=== PATIENT | female | born 1960 | race Caucasian/White ===

== ENCOUNTER 2020-08-26 12:01 | Outpatient (CLI) | payer OTHER, SELFPAY ==
--- NOTE | 2020-08-26 19:44 | ONC CON_ITS ---
Dr. Morin New Patient Note Patient: Usha Jcainto Unit #: [id number]: [id number] Dicatated By: Ayan Morin M.D.Date of Visit: August 26, 2020 Onc MED New Patient/Consult Referring Physician: Seth Aguirre Chief Complaint: Breast cancer. 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 Her left breast cancer, diagnosed in 2004, was an invasive ductal carcinoma measuring 2.2 cm. The available records did not include the grade, but the Ki-67 was high at 90%. It was ER positive at 97% and VT positive at 98%. HER-2/karissa was 2+ by IHC but negative by FISH. By current TNM classification, it would be at most stage IB, assuming a grade 3 tumor. Her treatment included mastectomy and axillary lymph node dissection which showed no involvement in 23 lymph nodes. She was given adjuvant chemotherapy with Adriamycin/cyclophosphamide followed by Taxotere and she also completed 5 years of endocrine therapy with tamoxifen, completed in 2010. She had negative genetic screening by a [facility] panel in 2014. She then presented in August 2017 with abnormal breast imaging, ultrasound demonstrating a 10 mm lesion at the 12 o'clock position of the right breast. She was confirmed by ultrasound-guided biopsy to have metaplastic carcinoma. The breast prognostic profile showed ER negative at 0%, VT negative at 0%, and HER-2/karissa negative, 0 by IHC. The Ki-67 was 7%. A subsequent MRI of the right breast showed an additional area of suspicion at the 10 o'clock position. On 11/08/2017 she underwent right mastectomy with axillary sentinel lymph node biopsy and with immediate reconstruction utilizing a tissue lab head. Pathology showed multicentric grade 3 invasive ductal carcinoma with cartilaginous differentiation (metaplastic carcinoma) including a 10 mm lesion in the upper outer quadrant and a 2 mm lesion in the lower outer quadrant. There was no involvement in 2 right axillary sentinel lymph nodes. Pathologic staging was IB (T1b, N0, M0). She was given adjuvant chemotherapy with 4 cycles of cyclophosphamide/Taxotere, completed in March 2018. Her clinical course was complicated by failed reconstruction, requiring removal of her tissue lab head in October 2017. She then underwent reconstruction utilizing a latissimus dorsi myocutaneous flap in January 2018. During follow-up there has been no evidence of recurrence of the breast cancer. She had moved to this area in April and she is seen here for continued follow-up of her breast cancer. She has been feeling pretty good generally. She has good energy/activity tolerance. Her ECOG score is 0. Her appetite is too good . She has gained weight. She does not have fever, night sweats, or hot flashes. She does have some sinus drainage. She does not complain of shortness of breath, cough, or chest pain. She says she had acid reflux in the past. She currently has no GI complaints. She has urinary frequency and nocturia. She reports having some joint pain, mainly in her knees. She does not complain of headache or dizziness, and she has no focal neurologic symptoms. She recently started treatment with venlafaxine for anxiety symptoms. She reports having no associated depression. Past Medical History: Her medical history consists of allergic rhinitis, anxiety, breast cancer, and hypertension. Past Surgical History: Her surgical/procedural history includes placement of Port-A-Cath for chemotherapy in 2004 and again in 2018, right breast reconstruction utilizing latissimus dorsi myocutaneous flap in 2017, right mastectomy with axillary sentinel lymph node biopsy and immediate reconstruction in 2017, removal of tissue lab head for failed reconstruction in 2017, delayed left breast reconstruction in 2006, left mastectomy with axillary lymph node dissection in 2004, and tubal ligation in 1982. Medications: amLODIPine Besylate 1 (10 mg) Tablet Oral daily, Cetirizine HCl 1 (10 mg) Tablet Oral daily, Cholecalciferol 1 (10 mcg ) Capsule Oral daily, Cholecalciferol 1 (10 mcg ) Capsule Oral daily, Fish Oil 1 (2000 mg) Capsule Oral daily, Folic Acid 1 (66 mcg) Tablet Oral daily, Lisinopril 1 (40 mg) Tablet Oral daily, Venlafaxine HCl ER 1 (75 mg) Capsule SR 24 HR Oral daily, Vitamin E 1 (45 mg) Capsule Oral daily Allergies: Cephalosporins, Keflex, and Penicillins. Social History: Ms. Jacinto is . She is a non-smoker. She has just very occasional alcohol use. Family History: Father had diabetes and heart disease. He at age 79. Mother still living at age 76. Three brothers and 2 sisters are in good health. There is no history of breast cancer or ovarian cancer in the family. Review Of Symptoms: Constitutional - She has good energy and she has normal activity. Her appetite is too good . She has gained weight. She does not have fever, night sweats, or hot flashes. ECOG score is 0, Eyes - No change in vision, ENMT - No hearing loss or tinnitus. She has some sinus drainage. No mouth sores. No sore throat or difficulty swallowing, Hematologic/Lymphatic - No abnormal bruising or bleeding, Respiratory - No shortness of breath. No cough. No pleuritic pain or hemoptysis, Cardiovascular - No angina pain. No palpitations, Gastrointestinal - No nausea or vomiting. In the past she has had acid reflux, but none currently. No diarrhea or constipation. No blood in the stool or black stools, Genitourinary (F) - No dysuria or hematuria. She has urinary frequency and nocturia. No urgency or incontinence, Musculoskeletal - She has some joint pain, mainly in the knees, Integumentary - No skin rash or other skin changes, Neurologic - No headache or dizziness. No numbness or tingling. No other focal neurologic symptoms, Psychiatric - She has some anxiety. No depression. No insomnia. Vital Signs: Performed on August 26, 2020 13:39: 0, 0, 34.11 (HIGH), 1.93 sq.m, 63.5 in, 96 %, 84 /min, 18 /min, 155/94 mm(hg) (HIGH), 97.9 F (LOW), and 195.6 lbs (HIGH). Physical Examination: Constitutional - She appears to be in good general health, Eyes - Sclerae nonicteric. Conjunctivae clear, ENMT - No lesions noted in the oral cavity, Neck - No mass or thyromegaly, Hematologic/Lymphatic - No cervical or clavicular adenopathy, Respiratory - Lungs are clear with good air movement bilaterally, Cardiovascular - Heart rhythm is regular. There is no murmur, gallop, or rub noted, Breasts - There are no lesions noted in the chest wall/reconstruction bilaterally. There is no axillary adenopathy, Abdomen - Soft and non-tender. Liver and spleen are not enlarged. There is no abdominal mass or ascites noted and there is no inguinal adenopathy, Back/Spine - No spine or CVA tenderness noted, Extremities - No edema. Pedal pulses are palpable bilaterally, Integumentary - No rashes. No suspicious skin lesions noted, Neurologic - No focal neurologic deficits noted. Problem List: 1. 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 Treatment included right mastectomy with axillary sentinel lymph node biopsy and adjuvant chemotherapy with 4 cycles of cyclophosphamide/Taxotere, completed in March 2018. 2. History of invasive ductal carcinoma of the left breast, stage IB by current TNM classification (T2, pN0, M0), ER/VT positive and HER-2/karissa negative. Treatment included left mastectomy with axillary lymph node dissection, adjuvant chemotherapy with Adriamycin/cyclophosphamide followed by Taxotere, and 5 years of endocrine therapy with tamoxifen, completed in 2010. 3. Hypertension. 4. Allergic rhinitis. 5. Anxiety. 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 Treatment included right mastectomy with axillary sentinel lymph node biopsy in October 2017 followed by adjuvant chemotherapy with 4 cycles of cyclophosphamide/Taxotere, completed in March 2018. Her clinical course was complicated by failed reconstruction, requiring removal of tissue lab head in October 2017. She then underwent right breast reconstruction utilizing latissimus dorsi myocutaneous flap in January 2018. During follow-up she has been doing well clinically, thus far with no evidence of recurrence of the breast cancer. She remains on observation/expectant management. I will plan to see her at 6-month intervals. She is aware that for breast cancer follow-up laboratory and/or imaging studies are ordered only as needed based on symptoms. She also will be contributing regular follow-up with her primary care provider. Signed By: Ayan Morin M.D. <<Signature on File>>
== END 2020-08-26 12:02 | disposition home or self-care (01) ==
LOC: ONCMED 12:06
PROVIDERS: PCP Family Medicine; Visit Provider Internal Medicine Medical Oncology
DX: C50.811 Malignant neoplasm of overlapping sites of right female breast (principal); Z17.1 Estrogen receptor negative status [ER-]; I10 Essential (primary) hypertension; J30.9 Allergic rhinitis, unspecified; F41.9 Anxiety disorder, unspecified; Z85.3 Personal history of malignant neoplasm of breast; Z90.11 Acquired absence of right breast and nipple; Z90.12 Acquired absence of left breast and nipple; Z92.21 Personal history of antineoplastic chemotherapy; Z79.899 Other long term (current) drug therapy
CPT/HCPCS: 99203

== ENCOUNTER → 2020-12-31 13:18 | Outpatient (BNVA) | payer OTHER, SELFPAY | PROVIDERS: PCP Family Medicine; Visit Provider Surgery | DX: Z20.822 Contact with and (suspected) exposure to COVID-19 (principal); C50.919 Malignant neoplasm of unspecified site of unspecified female breast | CPT/HCPCS: 87635 ==

== ENCOUNTER 2021-01-06 07:35 | Day surgery (SDC) | payer OTHER, SELFPAY ==
[2021-01-05 13:37] VITALS: BMI 35.4
[2021-01-06 08:00] VITALS: BP 135/93; PULSE 77; RESP 16; TEMP 36.7; O2SAT 97
--- NOTE | 2021-01-06 08:23 | P.ANESUD_ITS ---
Pre-Anesthetic Update Pre-Anesthetic Assessment: Date of Surgery/Procedure: 01/06/21 Preop Sandra gnosis: Breast cancer Proposed Procedure: Operation Date: 01/06/21 09:10 Proposed Procedures p Portacath Removal 49957 C50.919(Not Applicable) - Ganesh Lerma MD Any changes to Pre-Anesthetic Assessment?: No Last Intake: Intake Last Liquid Date 01/06/21 Last Liquid Time 06:00 Last Solid Date 01/05/21 Last Solid Time 20:00 Vitals: Temperature 98.1 F 01/06/21 08:00 Temperature Source Temporal Artery S can 01/06/21 08:00 Pulse Rate 77 01/06/21 08:00 Pulse Rhythm 01/06/21 08:06 Respiratory Rate 16 01/06/21 08:00 Blood Pressure 135/93 01/06/21 08:00 Blood Pressure Azalia n 107 01/06/21 08:00 Pulse Oximetry 97 01/06/21 08:00 Oxygen Delivery Me thod 01/06/21 08:06 Exam: Pre-Anes Outpt Exam: alert, oriented x 3, clear to auscultation bilat erally and regular rate & rhythm Cardiac Studies: No Data to Display
[2021-01-06] MEDS: sodium chloride 0.9% 1,000 ML 30 ML IV (08:37)
--- NOTE | 2021-01-06 09:16 | W.PM.OPSUD ---
Surgery/Procedure H&P Update DATE OF PROCEDURE: January 06, 2021 DATE H&P PERFORMED: 12/11/20 H&P UPDATE INFORMATION: I have reviewed H&P completed within last 30 days, I have examined patient prior to procedure and No changes to prior documentation PREOP DIAGNOSIS: Breast cancer PRIMARY INDICATION FOR PROCEDURE: The same PLANNED PROCEDURE: Operation Date: 01/06/21 09:10 Proposed Procedures p Portacath Removal [id number] C50.919(Not Applicable) - Ganesh Lerma MD
[2021-01-06] MEDS: clindamycin 600 MG/50 ML PREMIX 100 MG IV (09:25)
[2021-01-06] MEDS: lidocaine 2% INJ 20 mL (09:46)
--- NOTE | 2021-01-06 09:59 | P.OP_ITS ---
Operative Report Date of procedure: January 06, 2021 Pre-op Diagnosis: Breast cancer Post-op diagnosis: same Procedure Done: Explantation of right upper chest Port-A-Cath Specimens removed/disposition: Port-A-Cath for gross pathology Surgeon: Ganesh Lerma Director Drug Safety: Surgical Gisella Peterson surgical forceps fabricator student Rachele Bowman medical student Circulating nurse Maude Anesthesia: MAC (conduit worker Zoe) Estimated blood loss (mL): 5 Findings: Presence of pseudocapsule surrounding the port Condition: stable Disposition: same day Brief History: Undesired Port-A-Cath. Procedure: Patient was identified in the holding area and the right upper chest port site was marked by myself prior to the procedure in the presence of female janitorial manager medical student Rachele Villagomez. Planned procedure and destination after the procedure, all were in agreement. SCDs confirmed to be functioning, preoperative antibiotics administered per protocol, and beta benson protocol was confirmed, appropriate positioning of the patient was done by me and the staff. Prep and drape of the upper chest was done under the usual sterile technique,injection of lidocaine 2% at the site of the planned incision started by an transverse incision including the previous scar of the Port-A-Cath placem ent located at the right upper chest wall. The port was then explanted after taking down the Prolene sutures attaching the port to the, at this point the catheter was removed at the same time direct pressure was applied at the site of the right subclavian vein stick to prevent bleeding. The entire port and the catheter was sent for gross pathology Thorough irrigation of the Port-A-Cath cavity was done followed by hemostasis,Closure using Vicryl 3/0 sutures followed by 4-0 Monocryl, then surgical glue and pressure dressing. Count was completed for instruments, needles and sponges, patient was then taken to the recovery area in stable condition I was present for the whole entire procedure
[2021-01-06 10:04] VITALS: BP 97/60; PULSE 71; RESP 12; TEMP 36.2; O2SAT 94
[2021-01-06 10:10] VITALS: BP 102/62; PULSE 66; RESP 14; TEMP 36.6; O2SAT 95
[2021-01-06 10:14] VITALS: BP 98/67; PULSE 66; RESP 18; TEMP 36.1; O2SAT 96
[2021-01-06 10:28] VITALS: BP 96/67; PULSE 62; RESP 18; O2SAT 96
--- NOTE | 2021-01-07 07:53 | ANE.PACU2 ---
Inpatient post-anesthesia follow up: Airway intact: Yes Vital signs: Temperature 97.0 F Pulse Rate 62 Respiratory Rate 18 Blood Pressure 96/67 Pulse Oximetry 96 Oxygen Delivery Me thod Room Air Oxygen Flow Rate Fraction of Inspir ed Oxygen Hydration adequate: Yes Nausea and vomiting: No Pain level: 2 Mental status: Baseline
== END 2021-01-06 11:05 | disposition home or self-care (01) ==
PROVIDERS: PCP Family Medicine; Visit Provider Surgery
PROC: (CPT 36589; principal; 2021-01-06 09:10)
DX: C50.919 Malignant neoplasm of unspecified site of unspecified female breast (principal)
CPT/HCPCS: 36590; 88300; J2704; J3490; J7030

== ENCOUNTER 2021-03-10 12:13 | Outpatient (CLI) | payer OTHER, SELFPAY ==
--- NOTE | 2021-03-10 14:40 | ONC FU_ITS ---
Dr. Morin Patient Follow-Up Note Patient: Usha Jacinto Unit #: [id number]: [id number] Dicatated By: Ayan Morin M.D.Date of Visit:Mar 10, 2021 Onc Med Follow-up/Prog Note Chief Complaint: Breast cancer. 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 Her left breast cancer, diagnosed in 2004, was an invasive ductal carcinoma measuring 2.2 cm. The available records did not include the grade, but the Ki-67 was high at 90%. It was ER positive at 97% and WA positive at 98%. HER-2/karissa was 2+ by IHC but negative by FISH. By current TNM classification, it would be at most stage IB, assuming a grade 3 tumor. Her treatment included mastectomy and axillary lymph node dissection which showed no involvement in 23 lymph nodes. She was given adjuvant chemotherapy with Adriamycin/cyclophosphamide followed by Taxotere and she also completed 5 years of endocrine therapy with tamoxifen, completed in 2010. She had negative genetic screening by a [facility] panel in 2014. She then presented in August 2017 with abnormal breast imaging, ultrasound demonstrating a 10 mm lesion at the 12 o'clock position of the right breast. She was confirmed by ultrasound-guided biopsy to have metaplastic carcinoma. The breast prognostic profile showed ER negative at 0%, WA negative at 0%, and HER-2/karissa negative, 0 by IHC. The Ki-67 was 7%. A subsequent MRI of the right breast showed an additional area of suspicion at the 10 o'clock position. On 11/08/2017 she underwent right mastectomy with axillary sentinel lymph node biopsy and with immediate reconstruction utilizing a tissue passenger brakeman. Pathology showed multicentric grade 3 invasive ductal carcinoma with cartilaginous differentiation (metaplastic carcinoma) including a 10 mm lesion in the upper outer quadrant and a 2 mm lesion in the lower outer quadrant. There was no involvement in 2 right axillary sentinel lymph nodes. Pathologic staging was IB (T1b, N0, M0). She was given adjuvant chemotherapy with 4 cycles of cyclophosphamide/Taxotere, completed in March 2018. Her clinical course was complicated by failed reconstruction, requiring removal of her tissue passenger brakeman in October 2017. She underwent reconstruction utilizing a latissimus dorsi myocutaneous flap in January 2018. She then continued expectant management for the breast cancer. She had moved to this area in April 2020. I had seen her initially on 08/26/2020 for continued follow-up. At that point she appeared to be doing well clinically with no evidence of recurrence of the breast cancer. Her other medical illnesses have been limited to hypertension, allergic rhinitis, and chronic anxiety. She is a non-smoker. She is seen for a follow-up visit. She has had some persistent fatigue following her chemotherapy in 2018. She has continued, though, to maintain normal activity, though. Her ECOG score is 0. She has good appetite. She has been gaining weight gradually. She has not had fever. She has just occasional hot flashes, mainly at night. She has allergy related sinus symptoms and she tends to have cough when she first gets up in the morning. She has some mild exertional dyspnea. She does not complain of chest pain. She has occasional acid reflux. She has no other GI complaints. She has urinary frequency and nocturia. She has chronic back pain, which is unchanged. She also has some joint pain, mainly in the hips and knees. She has been having a few more headaches. She has some orthostatic lightheadedness. She has no residual neuropathy. Her anxiety has been managed adequately with venlafaxine. Medications: amLODIPine Besylate 1 (10 mg) Tablet Oral daily, Cetirizine HCl 1 (10 mg) Tablet Oral daily, Cholecalciferol 1 (10 mcg ) Capsule Oral daily, Cholecalciferol 1 (10 mcg ) Capsule Oral daily, Fish Oil 1 (2000 mg) Capsule Oral daily, Folic Acid 1 (66 mcg) Tablet Oral daily, Lisinopril 1 (40 mg) Tablet Oral daily, Venlafaxine HCl ER 1 (75 mg) Capsule SR 24 HR Oral daily, Vitamin E 1 (45 mg) Capsule Oral daily Allergies: Cephalosporins, Keflex, and Penicillins. Vital Signs: Performed on Mar 10, 2021 12:24 Height - 63.50 in Weight - 202 lbs (HIGH) BSA - 1.95 sq.m BMI - 35.22 (HIGH) Temperature - 98.0 F (LOW) Pulse - 82 /min Respiration - 18 /min BP - 134/83 mm(hg) O2 Sat - 97 % Pain - 0 Fatigue - 4 Physical Examination: Constitutional - She looks good generally, Eyes - Sclerae nonicteric. Conjunctivae clear, ENMT - No lesions noted in the oral cavity, Hematologic/Lymphatic - No cervical, clavicular, or axillary adenopathy, Respiratory - Lungs are clear with good air movement bilaterally, Cardiovascular - Heart rhythm is regular. There is no murmur, gallop, or rub noted, Abdomen - Soft. Liver and spleen are not enlarged. There is no abdominal mass or ascites noted and there is no inguinal adenopathy, Extremities - No edema. She has good pedal pulses bilaterally, Neurologic - No focal neurologic deficits noted. Problem List: 1. 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 Treatment included right mastectomy with axillary sentinel lymph node biopsy and adjuvant chemotherapy with 4 cycles of cyclophosphamide/Taxotere, completed in March 2018. 2. History of invasive ductal carcinoma of the left breast, stage IB by current TNM classification (T2, pN0, M0), ER/WA positive and HER-2/karissa negative. Treatment included left mastectomy with axillary lymph node dissection, adjuvant chemotherapy with Adriamycin/cyclophosphamide followed by Taxotere, and 5 years of endocrine therapy with tamoxifen, completed in 2010. 3. Hypertension. 4. Allergic rhinitis. 5. Anxiety. Problems Addressed with this Encounter and Plan: Patient with multicentric grade 3 invasive ductal carcinoma (metaplastic carcinoma) of the right breast, stage IB (T1b, pN0, M0), ER/WA negative and HER-2/karissa negative. Treatment included right mastectomy with axillary sentinel lymph node biopsy in October 2017 followed by adjuvant chemotherapy with 4 cycles of cyclophosphamide/Taxotere, completed in March 2018. Her clinical course was complicated by failed reconstruction, requiring removal of tissue passenger brakeman in October 2017. She then underwent right breast reconstruction utilizing latissimus dorsi myocutaneous flap in January 2018. During follow-up she has had persistent fatigue, but she has been able to maintain normal activities. Overall, she has been doing well clinically. Thus far there has been no evidence of recurrence of the breast cancer. She is continuing regular follow-up with Dr. Seth Aguirre, and she will be getting laboratory studies with him sometime within the next 2 weeks. I will see her again in 6 months. Signed By: Ayan Morin M.D. <<Signature on File>>
== END 2021-03-10 12:14 | disposition home or self-care (01) ==
LOC: ONCMED 12:14
PROVIDERS: PCP Family Medicine; Visit Provider Internal Medicine Medical Oncology
DX: Z08 Encounter for follow-up examination after completed treatment for malignant neoplasm (principal); Z85.3 Personal history of malignant neoplasm of breast; Z90.13 Acquired absence of bilateral breasts and nipples; I10 Essential (primary) hypertension; J30.9 Allergic rhinitis, unspecified; F41.9 Anxiety disorder, unspecified; Z79.899 Other long term (current) drug therapy; Z92.21 Personal history of antineoplastic chemotherapy
CPT/HCPCS: G0463

== ENCOUNTER 2023-09-22 11:43 | Oncology outpatient (recurring) (ONCR) | payer OTHER, SELFPAY ==
[2023-09-22 12:37] LABS: Basophils % 0.7 %; Eosinophils # 0.1 10^3/uL (0.0-0.8); Eosinophils % 0.8 %; Hematocrit 42.1 % (36-47); Lymphocytes # 1.8 10^3/uL (0.8-4.8); Lymphocytes % 30.3 %; Mean Corpuscular HGB Conc 33.5 g/dL (30-55); Mean Corpuscular Hemoglobin 30.2 pg (27-33); Mean Corpuscular Volume 90.1 fl (85-98); Mean Platelet Volume 9.6 fL (7.4-10.4); Monocytes # 0.5 10^3/uL (0.2-0.9); Monocytes % 8.2 %; Neutrophils # 3.52 10^3/uL (1.8-7.7); Neutrophils % 58.8 %; Nucleated Red Blood Cells % 0 %; Platelet Count 257 10^3/cmm (157-399); Red Blood Count 4.67 10^6/uL (3.85-5.65); Red Cell Distribution Width 13.2 % (12.1-15.1); White Blood Count 5.98 10^3/uL (3.29-11.43)
[2023-09-22 13:01] LABS: Alanine Aminotransferase 19 U/L (0-33); Albumin Level 4.3 g/dL (3.5-5.2); Alkaline Phosphatase 97 U/L (35-105); Anion Gap 15.6 (5-19); Aspartate Amino Transferase 18 U/L (0-32); Blood Urea Nitrogen 10 mg/dL (8-23); Calcium 9.4 mg/dL (8.5-10.5); Carbon Dioxide 28 mmol/L (22-29); Chloride 100 mmol/L (98-107); Globulin 3.7 g/dL (1.3-4.6); Glucose 97 mg/dL (65-115); Osmolality Calculated 289 mOsm/kg (285-295); Potassium 3.6 mmol/L (3.5-5.1); Sodium 140 mmol/L (136-145); Total Bilirubin 0.4 mg/dL (0.15-1.2)
== END 2023-10-16 23:59 | disposition home or self-care (01) ==
PROVIDERS: Nurse Practitioner Family; PCP Family Medicine; Visit Provider Internal Medicine Medical Oncology
DX: C50.811 Malignant neoplasm of overlapping sites of right female breast (principal)
CPT/HCPCS: 36415; 80053; 85025

== ENCOUNTER 2023-10-11 07:31 | Outpatient (CLI) | payer OTHER, SELFPAY ==
--- NOTE | 2023-10-11 07:45 | US_ITS ---
WS: [id number] Exam: US chest [id number] Date/Time of Exam: 10/11/2023 7:35 AM Reason For Exam: tenderness/firmness in area of mastectomy scar The RIGHT chest wall and mastectomy area is targeted for ultrasound evaluation. There was no indication of the soft tissue mass or abnormal soft tissue fluid collection in the regio n of the mastectomy scar. The subcutaneous fat is clear. Myofascial structures are uniform in appeara nce. US/US chest [id number] IMPRESSION: 1. No abnormal ultrasound findings identified along the RIGHT chest wall in the region of previous mastectomy.
== END 2023-10-11 07:32 | disposition home or self-care (01) ==
PROVIDERS: PCP Family Medicine; Visit Provider Nurse Practitioner Family
DX: C50.811 Malignant neoplasm of overlapping sites of right female breast (principal); Z90.11 Acquired absence of right breast and nipple
CPT/HCPCS: 76604

== ENCOUNTER 2024-09-19 12:16 | Oncology outpatient (recurring) (ONCR) | payer OTHER, SELFPAY ==
[2024-09-19 12:35] LABS: Basophils % 0.5 %; Eosinophils # 0.1 10^3/uL (0.0-0.8); Eosinophils % 1.8 %; Hematocrit 43.4 % (36-47); Lymphocytes # 2.6 10^3/uL (0.8-4.8); Lymphocytes % 41.9 %; Mean Corpuscular HGB Conc 33.2 g/dL (30-55); Mean Corpuscular Hemoglobin 29.7 pg (27-33); Mean Corpuscular Volume 89.5 fl (85-98); Mean Platelet Volume 9.2 fL (7.4-10.4); Monocytes # 0.6 10^3/uL (0.2-0.9); Monocytes % 9.5 %; Neutrophils # 2.82 10^3/uL (1.8-7.7); Nucleated Red Blood Cells % 0 %; Platelet Count 267 10^3/cmm (157-399); Red Blood Count 4.85 10^6/uL (3.85-5.65); Red Cell Distribution Width 13.1 % (12.1-15.1); White Blood Count 6.13 10^3/uL (3.29-11.43)
[2024-09-19 12:59] LABS: Alanine Aminotransferase 14 U/L (0-33); Albumin Level 4.1 g/dL (3.5-5.2); Alkaline Phosphatase 93 U/L (35-105); Aspartate Amino Transferase 16 U/L (0-32); Blood Urea Nitrogen 13 mg/dL (8-23); Calcium 9.6 mg/dL (8.5-10.5); Carbon Dioxide 29 mmol/L (22-29); Chloride 97 mmol/L (98-107); Glomerular Filtration Rate 84.2 mL/min (90-130); Glucose 101 mg/dL (65-115); Osmolality Calculated 280 mOsm/kg (285-295); Sodium 135 mmol/L (136-145); Total Bilirubin 0.4 mg/dL (0.15-1.2); Total Protein 8.1 g/dL (6.6-8.7)
== END 2024-10-15 23:59 | disposition home or self-care (01) ==
PROVIDERS: Nurse Practitioner Family; PCP Family Medicine; Visit Provider Internal Medicine
DX: C50.912 Malignant neoplasm of unspecified site of left female breast (principal)
CPT/HCPCS: 36415; 80053; 85025